=== PATIENT | male | born 1955 | race Caucasian/White ===

== ENCOUNTER 2020-06-19 10:04 | Emergency (ER) | payer OTHER, BC ==
[~2020-06-19] VITALS: Ht 188 cm; Wt 93.0 kg
[2020-06-19] MEDS ORDERED: GEMFIBROZIL600 MG PO ×2 (10:28)
[2020-06-19] MEDS ORDERED: LISINOPRIL-HCT1 EAC1 PO ×2 (10:29)
[2020-06-19] MEDS ORDERED: PANTOPRAZOLE SO40 M2 PO ×2 (10:29)
[2020-06-19 11:18] LABS: BASOPHILS ABSOLUTE AUTO 0.05 K/mm3 (0.00-0.23); BASOPHILS PERCENT AUTO 1 % (0-2); EOSINOPHILS ABSOLUTE AUTO 0.07 K/mm3 (0.00-0.68); EOSINOPHILS PERCENT AUTO 1 % (0-6); Hematocrit 44.5 % (37.0-53.0); Hemoglobin 15.6 g/dL (13.5-17.5); IMMATURE GRAN ABSOLUTE AUTO 0.01 K/mm3 (0.00-0.10); IMMATURE GRAN PERCENT AUTO 0 % (0-1); LYMPHOCYTES ABSOLUTE AUTO 1.81 K/mm3 (0.84-5.20); LYMPHOCYTES PERCENT AUTO 19 % (21-46); MONOCYTES ABSOLUTE AUTO 0.64 K/mm3 (0.16-1.47); MONOCYTES PERCENT AUTO 7 % (4-13); Mean Corpuscular HGB 29.5 pg (26.0-34.0); Mean Corpuscular HGB Conc 35.1 g/dL (31.5-36.5); Mean Corpuscular Volume 84 fL (80-100); Mean Platelet Volume 9.1 fL (9.1-12.4); NEUTROPHILS ABSOLUTE AUTO 6.91 K/mm3 (1.96-9.15); NEUTROPHILS PERCENT AUTO 73 % (41-73); Platelet Count 356 K/mm3 (150-400); RDW Coefficient Variation 11.8 % (11.7-14.2); RDW Standard Deviation 35.7 fL (35.1-46.3); Red Blood Cell Count 5.28 M/mm3 (4.30-5.90); White Blood Cell Count 9.49 K/mm3 (4.00-11.30)
[2020-06-19 11:34] LABS: Alanine Aminotransfer (ALT/SGP 25 U/L (12-78); Albumin, Blood 3.9 g/dL (3.4-5.0); Albumin/Globulin Ratio 0.9 (0.8-1.8); Alk Phos 61 U/L (50-136); Anion Gap 7 mmol/L (6-16); Aspartate Aminotrans (AST/SGOT 12 U/L (12-37); Bilirubin, Total 0.7 mg/dL (0.1-1.0); Blood Urea Nitrogen 19 mg/dL (8-24); Bun/Creatinine Ratio 25.3 (12.0-20.0); CO2, Blood 28 mmol/L (21-32); Calcium, Blood 9.2 mg/dL (8.5-10.1); Chloride, Blood 103 mmol/L (98-108); Creatinine, Blood 0.75 mg/dL (0.60-1.20); Globulin, Blood 4.2 g/dL (2.2-4.0); Glomerular Filtration Rate >60 (60-); Glucose, Blood 94 mg/dL (70-99); Potassium, Blood 3.6 mmol/L (3.5-5.5); Sodium, Blood 138 mmol/L (136-145); Total Protein, Blood 8.1 g/dL (6.4-8.2)
== END 2020-06-19 13:20 | disposition home or self-care (01) ==
LOC: ER 10:04
PROVIDERS: Emergency Medicine
DX: K80.40 Calculus of bile duct with cholecystitis, unspecified, without obstruction (principal); I10 Essential (primary) hypertension
CPT/HCPCS: 36415; 74177; 80053; 83690; 85025; 99284-25; Q9967

== ENCOUNTER 2020-06-22 08:45 | Observation (INO) | payer OTHER, BC ==
[~2020-06-22] VITALS: Ht 188 cm; Wt 87.5 kg
[~2020-06-22 08:45] MED LIST: GEMFIBROZIL600 MG PO; LISINOPRIL-HCT1 EAC1 PO; PANTOPRAZOLE SO40 M2 PO
[2020-06-22 09:21] LABS: BASOPHILS ABSOLUTE AUTO 0.04 K/mm3 (0.00-0.23); BASOPHILS PERCENT AUTO 0 % (0-2); EOSINOPHILS ABSOLUTE AUTO 0.04 K/mm3 (0.00-0.68); EOSINOPHILS PERCENT AUTO 0 % (0-6); Hematocrit 43.6 % (37.0-53.0); Hemoglobin 15.2 g/dL (13.5-17.5); IMMATURE GRAN ABSOLUTE AUTO 0.03 K/mm3 (0.00-0.10); IMMATURE GRAN PERCENT AUTO 0 % (0-1); LYMPHOCYTES ABSOLUTE AUTO 1.44 K/mm3 (0.84-5.20); LYMPHOCYTES PERCENT AUTO 15 % (21-46); MONOCYTES ABSOLUTE AUTO 0.88 K/mm3 (0.16-1.47); MONOCYTES PERCENT AUTO 9 % (4-13); Mean Corpuscular HGB 29.3 pg (26.0-34.0); Mean Corpuscular HGB Conc 34.9 g/dL (31.5-36.5); Mean Corpuscular Volume 84 fL (80-100); Mean Platelet Volume 9.1 fL (9.1-12.4); NEUTROPHILS ABSOLUTE AUTO 7.13 K/mm3 (1.96-9.15); NEUTROPHILS PERCENT AUTO 75 % (41-73); Platelet Count 407 K/mm3 (150-400); RDW Coefficient Variation 11.4 % (11.7-14.2); Red Blood Cell Count 5.18 M/mm3 (4.30-5.90); White Blood Cell Count 9.56 K/mm3 (4.00-11.30)
[2020-06-22 09:32] LABS: Alanine Aminotransfer (ALT/SGP 20 U/L (12-78); Albumin, Blood 3.6 g/dL (3.4-5.0); Albumin/Globulin Ratio 0.8 (0.8-1.8); Alk Phos 57 U/L (50-136); Anion Gap 6 mmol/L (6-16); Aspartate Aminotrans (AST/SGOT 17 U/L (12-37); Bilirubin, Total 0.6 mg/dL (0.1-1.0); Blood Urea Nitrogen 17 mg/dL (8-24); CO2, Blood 28 mmol/L (21-32); Calcium, Blood 9.1 mg/dL (8.5-10.1); Chloride, Blood 97 mmol/L (98-108); Creatinine, Blood 0.85 mg/dL (0.60-1.20); Globulin, Blood 4.8 g/dL (2.2-4.0); Glomerular Filtration Rate >60 (60-); Glucose, Blood 111 mg/dL (70-99); Potassium, Blood 3.4 mmol/L (3.5-5.5); Sodium, Blood 131 mmol/L (136-145); Total Protein, Blood 8.4 g/dL (6.4-8.2)
[2020-06-22 11:58] LABS: Influenza A, PCR NEGATIVE (NEGATIVE); Influenza B, PCR NEGATIVE (NEGATIVE); Resp Syncytial Virus, PCR NEGATIVE (NEGATIVE); SARS-Cov-2 (COVID-19) PCR, MMC NEGATIVE (NEGATIVE)
--- NOTE | 2020-06-22 12:10 | NUR ---
PT ARRIVED TO ROOM VIA WHEELCHAIR, A/O X 4, INDEPENDENT, ORIENTED TO ROOM/CALL LIGHT, SURGICAL PACKET COMPLETED, DR GARCIA IN ROOM CONSULTING WITH PT, PT NPO; VS STABLE
--- NOTE | 2020-06-22 13:20 | NUR ---
pt transported to daysurgery
--- NOTE | 2020-06-22 14:22 | NUR ---
06/22/20 1422 VERACHENCHO MOSQUEDA PT RECEIVED SCHEDUOLED ANTIBIOTICS PRIOT TO PROCEDURE PER DR ORDERS.
--- NOTE | 2020-06-22 17:05 | NUR ---
pt transferred to room following lap tre via stretcher. pt drowsy, oriented x 4, denies nausea, rates pain at 6/10, provided with PO fluids and analgesia per mar. post op vs commenced and stable.
--- NOTE | 2020-06-22 17:57 | NUR ---
SHIFTSUMMARY: POST OP VSS AND CONTINUING PER PROTOCOL. PT DENIES N/V, RATES PAIN AT 4/10 FOLLOWING SURGICAL INTERVENTION, CONTINUES DROWSY FOLLOWING SURGERY, ENCOURAGED TO TCDB. PT SITTING UP IN BED WITH NC 3L SPO2 >90%. LAPARASCOPIC SITES X 5, UMBILICAL SITE WITH DRYING DRAINING, IS THE SITE OF FORMER HERNIA REPAIR.
--- NOTE | 2020-06-22 19:28 | NUR ---
RECEIVED REPORT AND ASSUMED CARE OF PT.
--- NOTE | 2020-06-22 19:40 | NUR ---
RECEIVED REPORT AND ASSUMED CARE OF PT. HE IS LYING QUIETLY IN BED, TOLERATED THE REGULAR DINNER. EDUCATION PROVIDED ON DB&C, SPLINTING HIS ABDOMEN, AND MOVING W/ LESS INVOLVEMENT OF HIS ABDOMINAL MUSCLES THAN NORMAL. URINATING WITHOUT DIFFICULTY.
--- NOTE | 2020-06-23 04:45 | NUR ---
SHIFT SUMMARY: ROOPA IS A&OX4. VSS, NO ACUTE EVENTS OVERNIGHT, ORA. HE REPORTS MINIMAL PAIN, AND STATES THAT HIS HEADACHE IS RESOLVED WITH THE APAP. HE IS INDEPENDENT TO THE BATHROOM, URINATING WITHOUT DIFFICULTY. AFTER REINFORCING THE EDUCATION, HE HAS BEEN COUGHING AND DEEP BREATHING, IS PROVIDED AND INSTRUCTED. LAP SITES TO ABDOMEN WITH SCANT DRIED BLOOD, STERI STRIPS INTACT. IV PATENT, SALINE LOCKED. HE USES THE CALL LIGHT APPROPRIATELY. HE IS LYING IN BED WITH THE CALL LIGHT IN REACH. WILL REPORT TO DAY SHIFT RN.
[2020-06-23] MEDS ORDERED: HYDR1TAB94 PO ×2 (10:16)
--- NOTE | 2020-06-23 10:49 | NUR ---
DC'D HOME, DC INSTRUCTIONS GIVEN, VERBALIZED UNDERSTANDING, PT STATES HE IS DRIVING HOME BUT INSTRUCTED NOT TO BECAUSE HE HAS TAKEN [facility] THIS AM, PT INSTRUCTED TO WAIT 6 HRS FROM THE TIME HE TOOK [facility] TO GO HOME OR TAKE A [facility] HOME, PT DECIDED TO TAKE A [facility] HOME, [facility] CALLED FOR PT.
== END 2020-06-23 11:00 | disposition home or self-care (01) ==
LOC: ER 08:45 → SURS 08:46
PROVIDERS: Emergency Medicine; ADMIT Surgery
DX: K80.00 Calculus of gallbladder with acute cholecystitis without obstruction (principal); K76.89 Other specified diseases of liver; I10 Essential (primary) hypertension; E78.5 Hyperlipidemia, unspecified; K21.9 Gastro-esophageal reflux disease without esophagitis; Z20.822 Contact with and (suspected) exposure to COVID-19
CPT/HCPCS: 0241U; 36415; 76705; 80053; 83690; 85025; 93005; 93010; A9270; A9270-GY; J0360; J1100; J1885; J2250; J2270; J2405; J2543; J2704; J2710; J3010; J7030; J7120

== ENCOUNTER 2023-04-18 18:20 | Emergency (ER) | payer OTHER ==
[~2023-04-18] VITALS: Ht 188 cm; Wt 93.0 kg
[~2023-04-18 18:20] MED LIST changes: +FISH OIL 1,0001 EA10 PO; +HYDR1TAB94 PO; +MULVITA PO; +NAPR500 PO; +VITAMIN D5000 UNIT PO; +Vitamin C100 M1 PO
[2023-04-18 18:53] LABS: BASOPHILS ABSOLUTE AUTO 0.04 K/mm3 (0.00-0.23); BASOPHILS PERCENT AUTO 1 % (0-2); EOSINOPHILS ABSOLUTE AUTO 0.09 K/mm3 (0.00-0.68); EOSINOPHILS PERCENT AUTO 2 % (0-6); Hematocrit 44.5 % (37.0-53.0); Hemoglobin 15.6 g/dL (13.5-17.5); IMMATURE GRAN PERCENT AUTO 0 % (0-1); LYMPHOCYTES ABSOLUTE AUTO 2.61 K/mm3 (0.84-5.20); LYMPHOCYTES PERCENT AUTO 46 % (21-46); MONOCYTES ABSOLUTE AUTO 0.59 K/mm3 (0.16-1.47); MONOCYTES PERCENT AUTO 10 % (4-13); Mean Corpuscular HGB 29.9 pg (26.0-34.0); Mean Corpuscular HGB Conc 35.1 g/dL (31.5-36.5); Mean Corpuscular Volume 85 fL (80-100); Mean Platelet Volume 9.5 fL (9.1-12.4); NEUTROPHILS ABSOLUTE AUTO 2.41 K/mm3 (1.96-9.15); NEUTROPHILS PERCENT AUTO 42 % (41-73); Platelet Count 286 K/mm3 (150-400); RDW Coefficient Variation 12.4 % (11.7-14.2); RDW Standard Deviation 38.3 fL (35.1-46.3); Red Blood Cell Count 5.21 M/mm3 (4.30-5.90); White Blood Cell Count 5.74 K/mm3 (4.00-11.30)
[2023-04-18 19:27] LABS: Albumin/Globulin Ratio 1.1 (0.8-1.8); Bilirubin, Total 0.4 mg/dL (0.1-1.0); Bun/Creatinine Ratio 23.7 (12.0-20.0); Calcium, Blood 9.6 mg/dL (8.5-10.1); Creatinine, Blood 0.8 mg/dL (0.60-1.20); Globulin, Blood 3.8 g/dL (2.2-4.0); Potassium, Blood 3.7 mmol/L (3.5-5.5); Total Protein, Blood 7.8 g/dL (6.4-8.2)
[2023-04-18 21:24] VITALS: BP 133/72
== END 2023-04-18 22:24 | disposition home or self-care (01) ==
LOC: ER 18:20
PROVIDERS: Student in an Organized Health Care Education/Training Program
DX: R07.9 Chest pain, unspecified (principal); R00.1 Bradycardia, unspecified
CPT/HCPCS: 71046; 80053; 83690; 84484; 85025; 93005; 93010; 99285-25